=== PATIENT | female | born 1950 | race African-American/Black ===

== ENCOUNTER 2019-06-03 11:40 | Emergency (ER) | payer MEDICARE, MEDICAID ==
[~2019-06-03] VITALS: Ht 167.6 cm; Wt 85.0 kg
[~2019-06-03 11:40] MED LIST: GLUCOTROL 5 MG T5 MG PO; HYDRALAZINE HC100 MG PO; LASIX40 MG PO; LIPITOR40 MG PO; NEURONTIN 300300 MG PO; NIFEDIPINE ER90 MG PO; SYNTHROID200 MC1 PO; TENORMIN50 MG PO
[2019-06-03 11:52] VITALS: Ht 167.6 cm; Wt 85.0 kg
[2019-06-03 13:20] VITALS: BP 126/78
== END 2019-06-03 13:21 | disposition home or self-care (01) ==
LOC: D.ER 11:40
DX: T82.838A Hemorrhage due to vascular prosthetic devices, implants and grafts, initial encounter (principal); E11.9 Type 2 diabetes mellitus without complications; E03.9 Hypothyroidism, unspecified; I11.0 Hypertensive heart disease with heart failure; I50.9 Heart failure, unspecified; J44.9 Chronic obstructive pulmonary disease, unspecified; Z79.84 Long term (current) use of oral hypoglycemic drugs

== ENCOUNTER 2019-06-25 05:52 | Day surgery (SDC) | payer MEDICARE, MEDICAID ==
[~2019-06-25] VITALS: Ht 167.6 cm; Wt 83.0 kg
[2019-06-25 06:23] LABS: CARBON DIOXIDE 27.2 mmol/L (21.0-32.0); CREATININE - SERUM 6.8 mg/dL (0.6-1.3); POTASSIUM - SERUM 4.2 mmol/L (3.5-5.1)
[2019-06-25 07:06] LABS: INR 0.96 (0.85-1.17); PROTIME 12.7 SECONDS (11.6-15.0)
[2019-06-25] MEDS ORDERED: TYLENOL W/CODEI1 TAB PO (07:09)
[2019-06-25 07:20] VITALS: Ht 167.6 cm; Wt 83.0 kg
[2019-06-25 07:30] LABS: HEMATOCRIT 40.1 % (36.0-48.0); HEMOGLOBIN 12.5 g/dL (12-16); MCH 30.7 pg (26.0-34.0); MCHC 31.2 g/dL (31.0-37.0); MCV 98.5 fL (80.0-100.0); MEAN PLATELET VOLUME 10.1 fL (7.4-10.4); NEUTROPHILS 53.1 % (40-80); PLATELET COUNT 217 10x3/uL (130-400); RBC 4.07 10x6/uL (4.00-5.40); WBC 5.1 10x3/uL (4.8-10.8)
[2019-06-25] MEDS ORDERED: ULTRAM50 MG PO (10:44)
--- NOTE | 2019-06-25 12:20 | NUR ---
RIGHT HAND PIV DC'D WITH TIP INTACT. PATIENT DRESSING IN PERSONAL CLOTHING. 1230 DISCHARGE INSTRUCTIONS REVIEWED WITH PATIENT, AWAITING ARRIVAL OF [facility] TO TRANSPORT PATIENT HOME 1310 [facility] STILL NOT HERE, PATIENT SITTING IN WHEELCHAIR IN ROOM, NO COMPLAINTS
--- NOTE | 2019-06-25 14:00 | NUR ---
[facility] BUS ARRIVES, PATIENT WHEELED TO ENTRANCE IN WHEELCHAIR AND LOADED ONTO SCAT BUS WITHOUT DIFFICULTY
--- NOTE | 2019-06-27 14:26 | OP ---
PATIENT NAME: MANJIT PÉREZ MEDICAL RECORD: [id number] :48 LOCATION:[facility] ADMISSION DATE: SURGEON: CHERY KAPLAN MD DATE OF OPERATION: 06/25/2019 REFERRED BY: Derick Gibbs MD PREOPERATIVE DIAGNOSES: End-stage renal disease and dependence on hemodialysis and recurring stenosis of carotid arch in left proximal radial artery to the cephalic vein AV fistula and steal syndrome, left upper extremity and hypertension and diabetes. OPERATION PERFORMED: Ultrasound-guided percutaneous access of AV fistula in the left arm, followed by performance of a fistulogram and balloon angioplasty of stenosis of the left carotid arch of some 80% with 0% residual stenosis and open Moore banding of the AV fistula over a 5-mm diameter balloon. ADDITIONAL REFERRING PHYSICIAN: Dr. Núñez. SURGEON: Chery Kaplan MD ANESTHESIA: General with LMA per DE IONIZER OPERATOR. PREOPERATIVE NOTE: Ms. Pérez is a very pleasant patient with end-stage renal disease, on chronic hemodialysis. She has dialysis on Monday, Monday, Monday at [facility] via a left proximal radial artery to cephalic vein AV fistula. This is a high flow fistula and she has had a problem with a recurring cephalic arch stenosis. She also has a complaint of numbness in the left hand, which has been attributed possibly to steal syndrome. I am not convinced of that diagnosis, but we have been unable to get her seen in a timely manner by neurology. She is still going to need to see a neurologist I believe after today's procedure. I plan to go ahead and do a banding procedure, which by reducing flow in this high flow fistula may help reduce shear stress enough to lessen the recurrence rate of the recurrent stricture of the cephalic arch. I will do a fistulogram. Also, since her fistula is today hyperpulsatile and she very likely does have a recurrent stenosis in the cephalic arch. DESCRIPTION OF PROCEDURE: Under general anesthesia in supine position, the patient was prepped and draped in a sterile manner. I examined her access first with ultrasound and noted it to be somewhat aneurysmal as well as hyperpulsatile. There was certainly no stenosis present. It was a bit tortuous. The arterial anastomosis, I believe to the proximal radial artery was well seen and there was no evidence of any stenosis in the anastomosis or juxta-anastomotic segment. The fistula was accessed with micropuncture technique in the distal third directed proximally and a 7-Upper Sorbian introducer subsequently inserted. Contrast injection and serial images with digital subtraction cineradiography were made and the fistula studied up to the cephalic arch up to that point, it looked quite good, though flow was a little slow. The cephalic arch was quite severely strictured over significant distance of 2-3 cm. There was no evidence of obstruction or stenosis of the subclavian or innominate veins or superior vena cava. I subsequently dilated the stenotic cephalic arch with a 9 x 40 mm Bard balloon inflated by hand under fluoroscopy and demonstrated at least 80% stenosis and full effacement of the balloon. Repeated contrast injection revealed; however, OPERATIVE REPORT [id number] [place], [place] severe irregularities of the dilated segment, which was then redilated and repeat contrast injection demonstrated a much smoother, better angiographic appearance and my thought of going ahead with a stenting procedure today was put on hold. The fistula itself was much less hyperpulsatile, much softer and obviously the physiological effect of the balloon dilatation had been significant. I then proceeded with a banding procedure hoping that reducing flow would reduce shear stress and reduce the rate of recurrence of the proximal stenosis. This also will decrease flow in the fistula significantly and perhaps contribute to alleviation of steal syndrome symptoms. I made an oblique incision along the medial aspect of the fistula in the antecubital space and raised a skin flap and dissected circumferentially around the vein and placed two 2-0 Prolene ties around the vein. I then took a 5-mm diameter angioplasty balloon and inflated to 20 atmospheres and then placed it next to this vein segment and tied the 2 Prolene ties firmly around the vein over the 5-mm diameter angioplasty balloon. These 2 ties were approximately 1 cm apart. The balloon was removed and flow restored in the fistula. I performed a retrograde angiogram and demonstrated a significant narrowing of the lumen of the fistula at both sites of ligatures and persistent good flow in the fistula. At this point, I decided the procedure was completed. The wounds was irrigated and infiltrated with 0.25% Marcaine without epinephrine and the wound was closed with a running intracuticular 4-0 Stratafix and Dermabond glue with Maxorb Ag, Tegaderm, and Cavilon skin prep. The 7-Upper Sorbian introducer was removed and hemostasis obtained at that puncture site with a [id number] 4-0 Prolene suture and then a dressing of Ultrafoam, Tegaderm, and Cavilon skin prep. The patient has a palpable radial artery pulse and her hand is warm as it had been preop. She was awakened and in stable condition taken to the recovery room. Blood loss was minimal to none during the procedure. Sponges, instruments, and needles were accounted for. No drain was used and no surgical specimen was submitted for histopathology. PLAN: I will allow the patient to go home today and provide a prescription for 50 mg tramadol tablets 10 of them, she can take 1 or if necessary two every 4 hours p.r.n. for pain. She will be asked to return to see me in my office next week for at least 1 followup visit and I will ask that she be scheduled at [facility] to have a followup fistulogram in 6 weeks, this is needed due to the potential and indeed likelihood of recurrent cephalic arch stenosis requiring stenting. TRANSINT:[id number] Voice Confirmation ID: [id number] DOCUMENT ID: [id number] cc: [facility] Procedure Center CHERY KAPLAN MD at 1426 CC: DERICK GIBBS MD [id number] DICTATION DATE: 06/25/19 1042 COCOA POWDER MIXER OPERATOR: 06/25/19 1209 [facility] 06/25/19 [id number] [place] [address]
== END 2019-06-25 14:00 | disposition home or self-care (01) ==
LOC: D.OPS 05:52
PROVIDERS: ATTEND Surgery
DX: I12.0 Hypertensive chronic kidney disease with stage 5 chronic kidney disease or end stage renal disease (principal); E11.22 Type 2 diabetes mellitus with diabetic chronic kidney disease; N18.6 End stage renal disease; Z99.2 Dependence on renal dialysis; J44.9 Chronic obstructive pulmonary disease, unspecified; K21.9 Gastro-esophageal reflux disease without esophagitis; E07.9 Disorder of thyroid, unspecified; T82.858A Stenosis of other vascular prosthetic devices, implants and grafts, initial encounter; T82.898A Other specified complication of vascular prosthetic devices, implants and grafts, initial encounter